=== PATIENT | female | born 1990 ===

== ENCOUNTER 2021-05-10 10:49 | Outpatient (CLI) | payer OTHER | END 2021-05-11 16:10 | disposition home or self-care (01) | LOC: SONOGRAMA 10:49 | DX: E55.9 Vitamin D deficiency, unspecified (principal); R10.10 Upper abdominal pain, unspecified; E78.1 Pure hyperglyceridemia; E02 Subclinical iodine-deficiency hypothyroidism; Z13.29 Encounter for screening for other suspected endocrine disorder ==

== ENCOUNTER 2022-11-22 13:02 | Outpatient (CLI) | payer OTHER | END 2022-11-22 14:29 | disposition home or self-care (01) | LOC: PRENATAL 13:02 | PROVIDERS: ATTEND Obstetrics & Gynecology Maternal & Fetal Medicine | DX: O35.3XX0 Maternal care for (suspected) damage to fetus from viral disease in mother, not applicable or unspecified (principal); O44.00 Complete placenta previa NOS or without hemorrhage, unspecified trimester; O99.210 Obesity complicating pregnancy, unspecified trimester; Z3A.20 20 weeks gestation of pregnancy ==